=== PATIENT | male | born 1960 | race Two or more races ===

== ENCOUNTER 2023-12-16 17:40 | Outpatient (CLI) | payer OTHER | END 2023-12-16 17:59 | disposition home or self-care (01) | LOC: LAB 17:40 | PROVIDERS: ATTEND Urology | DX: R97.20 Elevated prostate specific antigen [PSA] (principal) ==

== ENCOUNTER 2024-02-12 07:21 | Outpatient (CLI) | payer OTHER | END 2024-02-12 07:27 | disposition home or self-care (01) | LOC: SONOGRAMA 07:21 | PROVIDERS: ATTEND Urology | DX: N40.1 Benign prostatic hyperplasia with lower urinary tract symptoms (principal); R97.20 Elevated prostate specific antigen [PSA] ==